=== PATIENT | female | born 1945 | race Caucasian/White ===

== ENCOUNTER → 2016-08-28 | Outpatient (CLI) | payer MEDICARE, BC, OTHER ==
[~2016-08-28] MED LIST: ADVAIR 250/501 EA INH; ASPI-COR81 M1 PO; BUSPAR10 MG PO; CATALYN PO; FISH OIL 500MG500 MG PO; FLEXERIL10 MG PO; HYDROCODONE BIT1 T11 PO; INOSITOL500 MG PO; KLOR-CON20 MEQ PO; LIVAPLEX PO; LOZOL2.5 MG PO; OMNICEF300 MG PO; PRILOSEC20 M1 PO; PRILOSEC20 MG PO; PROBIOTIC PO; TASIGNA200 MG PO; ZETIA10 MG PO; ZOFRAN4 MG PO; ZYPAN PO; [UNRECOGNIZED DRUG - OTHER] PO
== END | disposition home or self-care (01) ==
LOC: US 10:42
DX: I65.23 Occlusion and stenosis of bilateral carotid arteries (principal)

== ENCOUNTER → 2016-09-20 | Outpatient (CLI) | payer MEDICARE, BC, OTHER | END | disposition home or self-care (01) | LOC: RAD 10:48 | DX: Z13.820 Encounter for screening for osteoporosis (principal); Z78.0 Asymptomatic menopausal state; Z90.710 Acquired absence of both cervix and uterus ==

== ENCOUNTER → 2017-05-17 | Outpatient (CLI) | payer MEDICARE, BC, OTHER | END | disposition home or self-care (01) | LOC: US 10:20 | DX: I65.23 Occlusion and stenosis of bilateral carotid arteries (principal); E04.1 Nontoxic single thyroid nodule; I70.8 Atherosclerosis of other arteries ==

== ENCOUNTER → 2017-08-26 | Outpatient (CLI) | payer MEDICARE, BC, OTHER | END | disposition home or self-care (01) | LOC: MRI 13:00 | DX: I65.23 Occlusion and stenosis of bilateral carotid arteries (principal); I10 Essential (primary) hypertension; E11.9 Type 2 diabetes mellitus without complications; C95.90 Leukemia, unspecified not having achieved remission; R42 Dizziness and giddiness ==

== ENCOUNTER → 2018-11-06 | Outpatient (CLI) | payer MEDICARE, BC, OTHER ==
[~2018-11-06] MED LIST changes: +ALEVE220 M1 PO; +BREO ELLIPTA 21 EACH INH; -BUSPAR10 MG PO; +BUSPAR5 MG PO; +COL-RITE100 M1 PO; +FLONASE ALLERG9.9 ML NAS; +IRON325 M1 PO; +KERASAL T; +LIPITOR40 MG PO; +PLAVIX75 M1 PO; +POTASSIUM CHLO20 ME3 PO; +TOPROL XL25 MG PO
== END | disposition home or self-care (01) ==
LOC: CT 09:52 → MRI 09:52 → CT 11-07 13:00
DX: H74.8X2 Other specified disorders of left middle ear and mastoid (principal); R51 Headache; I10 Essential (primary) hypertension; E11.9 Type 2 diabetes mellitus without complications

== ENCOUNTER → 2018-11-07 | Outpatient (CLI) | payer MEDICARE, BC, OTHER | END | disposition home or self-care (01) | LOC: MRI 11-05 10:00 → CT 11-06 10:00 → MRI 11-06 10:00 → CT 01:19 | DX: J16.8 Pneumonia due to other specified infectious organisms (principal) ==

== ENCOUNTER 2018-11-11 13:22 | Inpatient (IN) | payer MEDICARE, BC, OTHER ==
[~2018-11-11] VITALS: Ht 160 cm; Wt 71.8 kg
[~2018-11-11 13:22] MED LIST changes: -ALEVE220 M1 PO; -BREO ELLIPTA 21 EACH INH; -COL-RITE100 M1 PO; -FLONASE ALLERG9.9 ML NAS; -IRON325 M1 PO; -KERASAL T; -LIPITOR40 MG PO; -PLAVIX75 M1 PO; -POTASSIUM CHLO20 ME3 PO; -TOPROL XL25 MG PO
[2018-11-11 13:45] VITALS: BP 152/47
[2018-11-11 13:50] VITALS: BP 152/47
--- NOTE | 2018-11-11 13:50 | NUR ---
A 73, admitted to , under the services of JAMIA Betancourt MD with a diagnosis of PNEUMONIA. Chief complaint is PNEUMONIA. Patient arrived via ambulatory from [place]. Monitor applied. Initial assessment completed. Vital signs taken and recorded. JAMIA BETANCOURT MD notified of admission to the unit. Orders received. See assessment for past medical history, medications and allergies. Patient and/or family oriented to unit. [address] visitation policy reviewed. Clothing/patient valuable form completed. CLAU BHATIA
[2018-11-11] MEDS ORDERED: COL-RITE100 M1 PO (14:50)
[2018-11-11] MEDS ORDERED: ALEVE220 M1 PO (14:51)
[2018-11-11] MEDS ORDERED: LIPITOR40 MG PO (14:51)
[2018-11-11] MEDS ORDERED: IRON325 M1 PO (14:52)
[2018-11-11] MEDS ORDERED: POTASSIUM CHLO20 ME3 PO (14:54)
[2018-11-11] MEDS ORDERED: TOPROL XL25 MG PO (14:54)
[2018-11-11] MEDS ORDERED: BREO ELLIPTA 21 EACH INH (14:55)
[2018-11-11] MEDS ORDERED: PLAVIX75 M1 PO (14:55)
--- NOTE | 2018-11-11 14:56 | NUR ---
MED REC COMPLETED.
[2018-11-11] MEDS ORDERED: FLONASE ALLERG9.9 ML NAS (14:58)
[2018-11-11] MEDS ORDERED: KERASAL T (15:00)
--- NOTE | 2018-11-11 15:45 | NUR ---
NOTIFIED DR GARCIA OF CONSULT.
[2018-11-11 15:56] LABS: BASO % 0.9 % (0.0-1.0); EOS # 0.1 10*3/uL (0.0-0.4); EOS % 1.6 % (1.0-4.0); HEMATOCRIT 39.5 % (37.0-47.0); HEMOGLOBIN 12.9 g/dl (12.0-16.0); LYMPH # 1.1 10*3/uL (1.3-4.4); LYMPH % 25.2 % (27.0-41.0); MEAN CELL VOLUME 80.3 fl (81.0-99.0); MEAN CORPUSCULAR HGB 26.2 pg (27.0-31.0); MEAN CORPUSCULAR HGB CONC 32.7 g/dl (33.0-37.0); MEAN PLATELET VOLUME 9.8 fl (9.6-12.3); MONO # 0.4 10*3/uL (0.1-1.0); MONO % 9.9 % (3.0-9.0); NEUT # 2.6 10*3/uL (2.3-7.9); NEUT % 61.9 % (47.0-73.0); PLATELET COUNT AUTOMATED 145 10*3/uL (130-400); RED BLOOD COUNT 4.92 10*6/uL (4.10-5.10); RED CELL DISTRI WIDTH 17.8 % (0-14.5); WHITE BLOOD COUNT 4.3 10*3/uL (4.8-10.8)
[2018-11-11 16:00] VITALS: BP 154/59
[2018-11-11 16:18] LABS: BUN 15 mg/dl (7-24); CHLORIDE 104 mmol/L (98-107); CREATININE 0.59 mg/dL (0.55-1.02); POTASSIUM 3.9 mmol/L (3.5-5.1); SODIUM 138 mmol/L (136-145)
[2018-11-11 20:00] VITALS: BP 175/79
--- NOTE | 2018-11-11 22:20 | NUR ---
PATIENT'S SON WAS IN AND WANTED TO KNOW ALL MEDICATIONS THAT THE PATIENT WAS ON WHILE HERE IN THE HOSPITAL. RN CONFIRMED WITH PATIENT THAT SON WAS ALLOWED TO HAVE THIS INFORMATION. ALL MEDICATIONS REVIEWED WITH SON AND PATIENT.
[2018-11-12] VITALS: BP 140/45
[2018-11-12 07:59] VITALS: BP 200/106
--- NOTE | 2018-11-12 09:00 | NUR ---
Line Production Cook in to talk to patient. Patient states lives at home alone with her family checking in on her. There are 12 steps in the home. Physician: Dr. Remedios Win [facility]: [facility] Home health services: none Patient's level of ADLs: INDEPENDENT Patient has working utilities: yes DME: none Follow-up physician's appointment after d/c: she prefers to make her own follow up appt after discharge Does patient want to access PORTAL?: no Discharge plan discussed with patient and her son who is at the bedside. She is independent in her ADLs and ambulation. She lives at home alone with her family checking in on her. Discussed home health care services and she denies any home needs at this time. When medically stable she will be discharged to home. Her son will provide transportation upon discharge. Son brought in Breo inhaler, given to nurse Victor. Copies of living will and HPOA placed on chart. BRIONNA GARRISON
[2018-11-12 10:56] VITALS: BP 130/66
[2018-11-12 12:00] VITALS: BP 166/61
[2018-11-12 16:00] VITALS: BP 146/49
[2018-11-12 20:00] VITALS: BP 156/51
[2018-11-13] VITALS: BP 146/49
[2018-11-13 08:00] VITALS: BP 136/103
--- NOTE | 2018-11-13 08:00 | NUR ---
ASSESSMENT COMPLETE ON PT AT THIS TIME. RESPIRATIONS EASY AND UNLABORED ON ROOM AIR. NO C/O SOB OR CHEST PAIN. AM PO MEDICATIONS GIVEN AT THIS TIME. WILL CONTINUE TO MONITOR PT. CALL LIGHT IN REACH.
[2018-11-13 12:00] VITALS: BP 149/53
[2018-11-13 12:12] LABS: ACT PARTIAL THROMBO TIME 24.1 SECONDS (20.0-32.1)
--- NOTE | 2018-11-13 14:00 | NUR ---
PT SITTING UP IN ROOM, NO S/S OF DISTRESS. NO COMPLAINTS VOICED. IV SITE TO RIGHT UPPER EXTREMITY PATENT. DRESSING C/D/I. FLUSHING WITH EASE. ALL SAFETY MEASURES IN PLACE. CALL LIGHT IN REACH.
[2018-11-13 16:00] VITALS: BP 136/67
--- NOTE | 2018-11-13 19:40 | NUR ---
CHANGES MADE TO PT MED REC ON FREQUENCY OF POTASSIUM CHLORIDE. PT STATES THAT SHE TAKES POTASSIUM ON AND NOT SATURDAY,SAT, SATURDAY-WHICH WAS PREVIOUSLY DOCUMENTED. PT REFUSED POTASSIUM PO TODAY BECAUSE SHE STATES THAT SHE TAKES IT ON SATURDAY, NOT THURSDAYS. WILL NOTIFY PHYSICIAN OF CHANGES.
[2018-11-13] MEDS ORDERED: POTASSIUM CHLO20 ME3 PO (19:49)
[2018-11-13 20:00] VITALS: BP 155/56
[2018-11-14] VITALS: BP 154/62
[2018-11-14 06:04] LABS: BUN 19 mg/dl (7-24); CREATININE 0.76 mg/dL (0.55-1.02)
[2018-11-14 06:24] LABS: VANCOMYCIN TROUGH 26.9 ug/mL (10-20)
--- NOTE | 2018-11-14 06:27 | NUR ---
NOTIFIED DR. APODACA OF [facility]. NO NEW ORDERS RECEIVED.
[2018-11-14 09:46] VITALS: BP 136/61; BP 154/72
[2018-11-14 10:16] VITALS: BP 123/57
--- NOTE | 2018-11-14 10:20 | NUR ---
report received from surgery, pt to return to room shortly
[2018-11-14 12:00] VITALS: BP 95/67
--- NOTE | 2018-11-14 12:00 | NUR ---
Digital Service Engineer in to see patient. No new needs or request at this time. She denies any home needs. When medically stable she will be discharged to home.
[2018-11-14 12:27] LABS: BF LYMPHOCYTES 4 %; BF MACROPHAGES 21 %; BF MONOCYTES 3 %; BF NEUTROPHILS 72 %
[2018-11-14 16:00] VITALS: BP 123/97
--- NOTE | 2018-11-14 19:00 | NUR ---
ARRIVED ON SHIFT,INTRODUCED TO PATIENT. PER PATIENT REQUEST REPORT GIVEN AWAY FROM ROOM, SHE HAS VISITORS PRESENT, NO NEEDS VOICED AT THIS TIME, WHITE BOARD UPDATED.
[2018-11-14 20:00] VITALS: BP 130/70; BP 147/69
--- NOTE | 2018-11-14 23:36 | NUR ---
24 HR chart check completed.
[2018-11-15] VITALS: BP 142/48
--- NOTE | 2018-11-15 02:00 | NUR ---
Patient sleeping. Respirations relaxed and easy. Siderails up X2. [place] on. BED IN LOW POSITION, CALL LIGHT WITHIN REACH. ELANA GERMAN
[2018-11-15 08:00] VITALS: BP 150/68; BP 160/68
[2018-11-15 12:00] VITALS: BP 156/50
[2018-11-15 14:06] LABS: ACID FAST SPEC PROCESSING Concentration (.)
[2018-11-15 14:06] LABS: ACID FAST SPEC PROCESSING Concentration (.)
--- NOTE | 2018-11-15 14:36 | NUR ---
SPOKE TO DR. GARCIA, PATIENT IS OKAY TO DISCHARGE HOME TODAY HE STATES HE IS UNABLE TO PLACE ALL DISCHARGE ORDERS. DR. GREGG SPOKE WITH DR. MCDONALD AND SHE IS AGREEABLE AND AWARE THAT PATIENT WILL DISCHARGE HOME TODAY WITH ONLY ONE NEW RX FOR LEVAQUIN. DISCHARGE ORDERS PLACED
--- NOTE | 2018-11-15 15:30 | NUR ---
Discharge instructions reviewed with patient/family. Patient receptive and verbalizes understanding. Follow-up care understood. Written instructions given to patient/family. pt understands discharge medications. pt states that she believes that she is not supposed to take levoquin with her chemo medication however, she does not want for me to call dr. moss to see about ordering another antibiotic, patient refused for rn to call dr. moss and stated that her son is a pharmacist and he will help her figure out if she can take levoquin or not. iv removed, tele removed. pt discharged home via wheelchair. ELI STEINER
[2018-12-26 10:09] LABS: ACID FAST CULTURE Negative (.)
[2018-12-26 10:09] LABS: ACID FAST CULTURE Negative (.)
[2019-01-03 13:06] LABS: ORGANISM ID, MOLD Final report (.)
== END 2018-11-15 15:39 | disposition home or self-care (01) | DRG 178 ==
LOC: 4E 13:22
PROVIDERS: Internal Medicine; ADMIT Internal Medicine Critical Care Medicine
PROC: 0B9C8ZX Drainage of Right Upper Lung Lobe, Via Natural or Artificial Opening Endoscopic, Diagnostic (ICD-10-PCS; principal; 2018-11-14)
PROC: 0BC58ZZ Extirpation of Matter from Right Middle Lobe Bronchus, Via Natural or Artificial Opening Endoscopic (ICD-10-PCS; principal; 2018-11-14)
PROC: 0BC98ZZ Extirpation of Matter from Lingula Bronchus, Via Natural or Artificial Opening Endoscopic (ICD-10-PCS; principal; 2018-11-14)
PROC: 0BC88ZZ Extirpation of Matter from Left Upper Lobe Bronchus, Via Natural or Artificial Opening Endoscopic (ICD-10-PCS; principal; 2018-11-14)
PROC: 0BC48ZZ Extirpation of Matter from Right Upper Lobe Bronchus, Via Natural or Artificial Opening Endoscopic (ICD-10-PCS; principal; 2018-11-14)
PROC: 0BCB8ZZ Extirpation of Matter from Left Lower Lobe Bronchus, Via Natural or Artificial Opening Endoscopic (ICD-10-PCS; principal; 2018-11-14)
PROC: 0BC18ZZ Extirpation of Matter from Trachea, Via Natural or Artificial Opening Endoscopic (ICD-10-PCS; principal; 2018-11-14)
PROC: 0BC68ZZ Extirpation of Matter from Right Lower Lobe Bronchus, Via Natural or Artificial Opening Endoscopic (ICD-10-PCS; principal; 2018-11-14)
PROC: 0BC78ZZ Extirpation of Matter from Left Main Bronchus, Via Natural or Artificial Opening Endoscopic (ICD-10-PCS; principal; 2018-11-14)
PROC: 0BC38ZZ Extirpation of Matter from Right Main Bronchus, Via Natural or Artificial Opening Endoscopic (ICD-10-PCS; principal; 2018-11-14)
DX: J15.6 Pneumonia due to other Gram-negative bacteria (principal); C92.10 Chronic myeloid leukemia, BCR/ABL-positive, not having achieved remission; I10 Essential (primary) hypertension; F17.200 Nicotine dependence, unspecified, uncomplicated; I48.91 Unspecified atrial fibrillation; E78.2 Mixed hyperlipidemia; K21.9 Gastro-esophageal reflux disease without esophagitis; I25.10 Atherosclerotic heart disease of native coronary artery without angina pectoris; Z79.01 Long term (current) use of anticoagulants

== ENCOUNTER → 2019-02-18 | Day surgery (SDC) | payer MEDICARE, BC, OTHER ==
[~2019-02-18] VITALS: Ht 160 cm; Wt 76.7 kg
[~2019-02-18] MED LIST changes: +ALEVE220 M1 PO; +BREO ELLIPTA 21 EACH INH; +COL-RITE100 M1 PO; +FLONASE ALLERG9.9 ML NAS; +IRON325 M1 PO; +KERASAL T; +LIPITOR40 MG PO; +PLAVIX75 M1 PO; +POTASSIUM CHLO20 ME3 PO; +TOPROL XL25 MG PO
[2019-02-18 10:00] VITALS: BP 197/76
[2019-02-18 10:43] VITALS: BP 127/70
[2019-02-18 11:00] VITALS: BP 159/94
[2019-02-18 11:12] VITALS: BP 173/68
== END | disposition home or self-care (01) ==
LOC: SDC 02-16 11:00
DX: H25.811 Combined forms of age-related cataract, right eye (principal); I25.10 Atherosclerotic heart disease of native coronary artery without angina pectoris; I50.9 Heart failure, unspecified; K21.9 Gastro-esophageal reflux disease without esophagitis; J44.9 Chronic obstructive pulmonary disease, unspecified; F41.9 Anxiety disorder, unspecified; Z79.899 Other long term (current) drug therapy; Z98.890 Other specified postprocedural states; Z95.5 Presence of coronary angioplasty implant and graft; Z82.49 Family history of ischemic heart disease and other diseases of the circulatory system; Z83.3 Family history of diabetes mellitus; Z82.61 Family history of arthritis; Z80.8 Family history of malignant neoplasm of other organs or systems

== ENCOUNTER → 2019-03-25 | Day surgery (SDC) | payer MEDICARE, BC, OTHER ==
[~2019-03-25] VITALS: Ht 160 cm; Wt 76.7 kg
[2019-03-25 09:32] VITALS: BP 183/90
[2019-03-25 10:41] VITALS: BP 167/84
[2019-03-25 10:56] VITALS: BP 194/68
[2019-03-25 11:10] VITALS: BP 188/80
== END | disposition home or self-care (01) ==
LOC: SDC 03-19 11:00
DX: H25.812 Combined forms of age-related cataract, left eye (principal); I10 Essential (primary) hypertension; F41.9 Anxiety disorder, unspecified; J44.9 Chronic obstructive pulmonary disease, unspecified; E78.00 Pure hypercholesterolemia, unspecified; K21.9 Gastro-esophageal reflux disease without esophagitis; Z82.49 Family history of ischemic heart disease and other diseases of the circulatory system; Z83.3 Family history of diabetes mellitus; Z80.8 Family history of malignant neoplasm of other organs or systems; Z82.61 Family history of arthritis

== ENCOUNTER → 2019-09-11 | Outpatient (CLI) | payer MEDICARE, BC, OTHER | END | disposition home or self-care (01) | LOC: US 12:21 | DX: R42 Dizziness and giddiness (principal) ==

== ENCOUNTER → 2019-10-02 | Outpatient (CLI) | payer MEDICARE, BC, OTHER | END | disposition home or self-care (01) | LOC: RAD 08:58 | DX: R13.10 Dysphagia, unspecified (principal) ==

== ENCOUNTER 2020-03-08 12:50 | Inpatient (IN) | payer MEDICARE, BC, OTHER ==
[2020-03-08] VITALS (13 sets, daily range): BP systolic 97–157; BP diastolic 56–89
[~2020-03-08] VITALS: Ht 157.5 cm; Wt 76.7 kg
[2020-03-08 13:54] LABS: BASO % 0.4 % (0.0-1.0); EOS % 0.4 % (1.0-4.0); HEMATOCRIT 39.7 % (37.0-47.0); LYMPH # 0.5 10*3/uL (1.3-4.4); LYMPH % 6.8 % (27.0-41.0); MEAN CELL VOLUME 78.5 fl (81.0-99.0); MEAN CORPUSCULAR HGB 25.9 pg (27.0-31.0); MEAN PLATELET VOLUME 9.5 fl (9.6-12.3); MONO # 0.5 10*3/uL (0.1-1.0); MONO % 6.4 % (3.0-9.0); NEUT # 6.4 10*3/uL (2.3-7.9); NEUT % 85.5 % (47.0-73.0); PLATELET COUNT AUTOMATED 193 10*3/uL (130-400); RED BLOOD COUNT 5.06 10*6/uL (4.10-5.10); RED CELL DISTRI WIDTH 16.2 % (0-14.5); WHITE BLOOD COUNT 7.5 10*3/uL (4.8-10.8)
[2020-03-08 14:06] LABS: ACT PARTIAL THROMBO TIME 26.3 SECONDS (20.0-32.1); INTERNATIONAL NORM RATIO 1.1 (2.0-3.5)
[2020-03-08 14:11] LABS: ALBUMIN 2.5 gm/dl (3.1-4.5); ALKALINE PHOSPHATASE 160 U/L (45-117); BUN 19 mg/dl (7-24); CHLORIDE 101 mmol/L (98-107); CREATININE 0.63 mg/dL (0.55-1.02); POTASSIUM 3.2 mmol/L (3.5-5.1); SGOT/AST 29 IU/L (3-35); SGPT/ALT 25 U/L (12-78); SODIUM 136 mmol/L (136-145); TOTAL PROTEIN 6.5 gm/dL (6.4-8.2)
[2020-03-08 14:20] LABS: TROPONIN I < 0.015 ng/ml (<0.045)
[2020-03-08] MEDS ORDERED: ESOMEPRAZOLE MA40 M1 PO (16:44)
[2020-03-09 06:49] LABS: BASO % 0.2 % (0.0-1.0); EOS % 0.7 % (1.0-4.0); HEMATOCRIT 37.7 % (37.0-47.0); LYMPH # 0.8 10*3/uL (1.3-4.4); LYMPH % 14.1 % (27.0-41.0); MEAN CELL VOLUME 79.5 fl (81.0-99.0); MEAN CORPUSCULAR HGB 25.9 pg (27.0-31.0); MEAN CORPUSCULAR HGB CONC 32.6 g/dl (33.0-37.0); MEAN PLATELET VOLUME 9.9 fl (9.6-12.3); MONO # 0.5 10*3/uL (0.1-1.0); MONO % 8.4 % (3.0-9.0); NEUT # 4.4 10*3/uL (2.3-7.9); NEUT % 75.7 % (47.0-73.0); PLATELET COUNT AUTOMATED 182 10*3/uL (130-400); RED BLOOD COUNT 4.74 10*6/uL (4.10-5.10); RED CELL DISTRI WIDTH 16.2 % (0-14.5); WHITE BLOOD COUNT 5.8 10*3/uL (4.8-10.8)
[2020-03-09 07:06] LABS: ALBUMIN 2.1 gm/dl (3.1-4.5); ALKALINE PHOSPHATASE 143 U/L (45-117); BUN 17 mg/dl (7-24); CHLORIDE 102 mmol/L (98-107); CREATININE 0.57 mg/dL (0.55-1.02); SGOT/AST 16 IU/L (3-35); SGPT/ALT 22 U/L (12-78); SODIUM 137 mmol/L (136-145); TOTAL PROTEIN 5.8 gm/dL (6.4-8.2)
[2020-03-09 08:00] VITALS: BP 134/90
[2020-03-09 10:13] LABS: BILIRUBIN 1+ (Negative); BLOOD Negative (Negative); CLARITY Cloudy (Clear); COLOR Dark Yellow (Yellow); GLUCOSE Negative (Negative); KETONE Trace (Negative); LEUKO ESTERASE 2+ (Negative); NITRITE Negative (Negative); SPECIFIC GRAVITY >= 1.030 (1.001-1.030); UROBILINOGEN >= 8.0 E.U./dl (0.0-1.0)
[2020-03-09 10:21] LABS: EPITHELIAL CELLS 16-20; WBC 21-30 wbc/hpf (0-5)
[2020-03-09 11:55] VITALS: BP 92/60
[2020-03-09 16:00] VITALS: BP 120/65
[2020-03-09 20:00] VITALS: BP 120/54
[2020-03-10] VITALS: BP 103/89
[2020-03-10 07:04] LABS: BASO % 0.3 % (0.0-1.0); EOS % 0.1 % (1.0-4.0); HEMATOCRIT 42.6 % (37.0-47.0); LYMPH # 0.7 10*3/uL (1.3-4.4); LYMPH % 9.6 % (27.0-41.0); MEAN CELL VOLUME 82.4 fl (81.0-99.0); MEAN CORPUSCULAR HGB 26.1 pg (27.0-31.0); MEAN CORPUSCULAR HGB CONC 31.7 g/dl (33.0-37.0); MEAN PLATELET VOLUME 9.9 fl (9.6-12.3); MONO # 0.1 10*3/uL (0.1-1.0); MONO % 1.3 % (3.0-9.0); NEUT # 6.6 10*3/uL (2.3-7.9); NEUT % 88.2 % (47.0-73.0); PLATELET COUNT AUTOMATED 197 10*3/uL (130-400); RED BLOOD COUNT 5.17 10*6/uL (4.10-5.10); WHITE BLOOD COUNT 7.5 10*3/uL (4.8-10.8)
[2020-03-10 07:20] LABS: ALBUMIN 2.3 gm/dl (3.1-4.5); BUN 23 mg/dl (7-24); CHLORIDE 105 mmol/L (98-107); SGOT/AST 39 IU/L (3-35); SODIUM 137 mmol/L (136-145)
[2020-03-10 07:22] LABS: ALKALINE PHOSPHATASE 213 U/L (45-117); CREATININE 0.92 mg/dL (0.55-1.02); SGPT/ALT 30 U/L (12-78); TOTAL PROTEIN 6.5 gm/dL (6.4-8.2)
[2020-03-10 07:42] LABS: POTASSIUM 5.5 mmol/L (3.5-5.1)
[2020-03-10 08:00] VITALS: BP 100/55
[2020-03-10 12:00] VITALS: BP 110/60
[2020-03-10 12:07] LABS: TROPONIN I 0.29 ng/ml (<0.045)
[2020-03-10 16:00] VITALS: BP 128/74
[2020-03-10 20:00] VITALS: BP 120/98
[2020-03-11] VITALS: BP 92/52
[2020-03-11 06:22] LABS: HEMATOCRIT 37.3 % (37.0-47.0); MEAN CELL VOLUME 80.9 fl (81.0-99.0); MEAN CORPUSCULAR HGB 26.5 pg (27.0-31.0); MEAN CORPUSCULAR HGB CONC 32.7 g/dl (33.0-37.0); MEAN PLATELET VOLUME 10.1 fl (9.6-12.3); PLATELET COUNT AUTOMATED 191 10*3/uL (130-400); RED BLOOD COUNT 4.61 10*6/uL (4.10-5.10); RED CELL DISTRI WIDTH 16.7 % (0-14.5); WHITE BLOOD COUNT 8.5 10*3/uL (4.8-10.8)
[2020-03-11 06:34] LABS: BUN 20 mg/dl (7-24); CHLORIDE 103 mmol/L (98-107); SGOT/AST 37 IU/L (3-35); SODIUM 135 mmol/L (136-145)
[2020-03-11 06:38] LABS: ALKALINE PHOSPHATASE 183 U/L (45-117); CREATININE 0.75 mg/dL (0.55-1.02); LDH 182 U/L (84-246); SGPT/ALT 31 U/L (12-78); TOTAL PROTEIN 5.5 gm/dL (6.4-8.2)
[2020-03-11 06:44] LABS: CPK 43 U/L (26-192); POTASSIUM 4.2 mmol/L (3.5-5.1)
[2020-03-11 07:14] LABS: PLATELET SUFFICIENCY NORMAL (NORMAL); SCHISTOCYTES FEW; TOTAL CELLS COUNTED 100 #CELLS
[2020-03-11 08:00] VITALS: BP 105/62
[2020-03-11] MEDS ORDERED: ELIQUIS5 M1 PO (08:19)
[2020-03-11 12:00] VITALS: BP 120/64
[2020-03-11 16:00] VITALS: BP 109/51
[2020-03-11 20:00] VITALS: BP 120/54
== END 2020-03-11 21:04 | disposition short-term general hospital (02) | DRG 392 ==
LOC: ED 12:50 → 4E 15:13 → EDHOLD 15:13 → 5E 19:01 → 4E 22:51
PROVIDERS: Family Medicine; ADMIT Internal Medicine; ATTEND Internal Medicine
DX: K57.20 Diverticulitis of large intestine with perforation and abscess without bleeding (principal); E44.0 Moderate protein-calorie malnutrition; I48.21 Permanent atrial fibrillation; N39.0 Urinary tract infection, site not specified; I48.0 Paroxysmal atrial fibrillation; S00.03XA Contusion of scalp, initial encounter; Z20.822 Contact with and (suspected) exposure to COVID-19; E87.6 Hypokalemia; J45.909 Unspecified asthma, uncomplicated; B96.89 Other specified bacterial agents as the cause of diseases classified elsewhere; I25.10 Atherosclerotic heart disease of native coronary artery without angina pectoris; K21.9 Gastro-esophageal reflux disease without esophagitis; E78.2 Mixed hyperlipidemia; W18.39XA Other fall on same level, initial encounter; Y93.89 Activity, other specified; Y92.89 Other specified places as the place of occurrence of the external cause; Y99.8 Other external cause status; Z91.048 Other nonmedicinal substance allergy status; Z82.49 Family history of ischemic heart disease and other diseases of the circulatory system; Z83.3 Family history of diabetes mellitus; Z82.61 Family history of arthritis; Z95.1 Presence of aortocoronary bypass graft